=== PATIENT | female | born 1960 | race Asian ===

== ENCOUNTER 2017-09-05 09:44 | Outpatient (CLI) | payer OTHER, BC ==
[~2017-09-05 09:44] MED LIST: LEVOTHYROXINE PO; gadopentetate dimeglumine 7.5 MMOL/15 ML syringe ONE
[2017-09-05 11:17] LABS: BASOPHILS % (AUTO) 0.7 % (0-1); EOSINOPHILS # (AUTO) 0.2 X10'3 (0-0.9); EOSINOPHILS % (AUTO) 4.1 % (0-6); HEMATOCRIT 42.1 % (35.0-45.0); HEMOGLOBIN 14.5 g/dl (12.0-16.0); LYMPHOCYTES # (AUTO) 2.3 X10'3 (1.1-4.8); LYMPHOCYTES % (AUTO) 45.3 % (21-51); MEAN CORPUSCULAR HEMOGLOBIN 32.4 PG (27.0-31.0); MEAN CORPUSCULAR HGB CONC 34.3 % (33.0-36.5); MEAN CORPUSCULAR VOLUME 94.4 FL (78-98); MEAN PLATELET VOLUME 7.7 FL (7.4-10.4); MONOCYTES # (AUTO) 0.4 X10'3 (0-0.9); MONOCYTES % (AUTO) 7.8 % (2-12); NEUTROPHILS # (AUTO) 2.1 X10'3 (1.8-7.7); NEUTROPHILS % (AUTO) 42.1 % (42-75); PLATELET COUNT 242 X10'3 (140-440); RED BLOOD COUNT 4.46 X10'6 (4.20-5.60); RED CELL DISTRIBUTION WIDTH 13.5 % (11.5-14.5); WHITE BLOOD COUNT 5.1 X10'3 (4.5-11.0)
[2017-09-05 11:20] LABS: CLARITY,URINE CLEAR (Clear); COLOR,URINE YELLOW (Yellow); GLUCOSE, URINE NEGATIVE (Neg); KETONES,URINE NEGATIVE (Neg); LEUKOCYTE ESTERASE ,URINE NEGATIVE (Neg); NITRITES, URINE NEGATIVE (Neg); OCCULT BLOOD,URINE NEGATIVE (Neg); PROTEIN,URINE NEGATIVE (Neg); UROBILINOGEN,URINE 0.2 E.U/dL (0.2-1.0)
[2017-09-05 11:21] LABS: UA COLLECTION TYPE CLN CATCH MIDSTREAM
[2017-09-05 11:46] LABS: ALANINE AMINOTRANSFERASE 71 U/L (12-78); ALKALINE PHOSPHATASE 67 IU/L (46-116); ANION GAP 9 (8-16); ASPARTATE AMINO TRANSFERASE 20 U/L (10-37); BILIRUBIN,TOTAL 0.4 MG/DL (0.1-1.0); BLOOD UREA NITROGEN 20 MG/DL (7-18); CALCIUM 9.4 MG/DL (8.5-10.1); CHLORIDE 106 MMOL/L (99-107); CHOLESTEROL 221 MG/DL (0-200); CREATININE 0.74 MG/DL (0.40-0.90); GLUCOSE 102 MG/DL (70-104); HDL CHOLESTEROL 74 MG/DL (35-60); LDL CHOLESTEROL 138 MG/DL (50-100); POTASSIUM 4.4 MMOL/L (3.5-5.1); SODIUM 141 MMOL/L (135-145); TOTAL CARBON DIOXIDE 25.8 MMOL/L (24-32); TOTAL PROTEIN 7.9 G/DL (6.4-8.2); TRIGLYCERIDES 112 MG/DL (20-135); eGFR 81 ML/MIN
== END 2017-09-05 23:59 | disposition home or self-care (01) ==
LOC: RAD 09:44
PROVIDERS: ATTEND Family Medicine
DX: Z00.01 Encounter for general adult medical examination with abnormal findings (principal); G93.89 Other specified disorders of brain; M25.562 Pain in left knee; G24.5 Blepharospasm; R42 Dizziness and giddiness; R60.0 Localized edema; Z79.82 Long term (current) use of aspirin
CPT/HCPCS: 36415; 70553; 80053; 80061; 81003; 84439; 84443; 85025; 85651; 93971; A9579

== ENCOUNTER 2017-10-03 09:06 | Outpatient (CLI) | payer OTHER, BC ==
[~2017-10-03 09:06] MED LIST changes: -gadopentetate dimeglumine 7.5 MMOL/15 ML syringe ONE
== END 2017-10-03 23:59 | disposition home or self-care (01) ==
LOC: LAB 09:06
PROVIDERS: ATTEND Family Medicine
DX: H02.402 Unspecified ptosis of left eyelid (principal)
CPT/HCPCS: 36415

== ENCOUNTER 2017-10-24 13:17 | Outpatient (CLI) | payer OTHER, BC | END 2017-10-24 23:59 | disposition home or self-care (01) | LOC: LAB 13:17 | PROVIDERS: ATTEND Psychiatry & Neurology Neurology | DX: H02.403 Unspecified ptosis of bilateral eyelids (principal) | CPT/HCPCS: 36415; 82607 ==

== ENCOUNTER → 2017-11-02 | Emergency (ER) | payer BC, OTHER ==
[~2017-11-02] VITALS: Ht 162.6 cm; Wt 86.0 kg
[~2017-11-02] MED LIST changes: +IBUP-1985 PO
[2017-11-02 07:36] VITALS: BP 118/71
== END | disposition home or self-care (01) ==
LOC: ER 05:19
DX: S82.892A Other fracture of left lower leg, initial encounter for closed fracture (principal); Z79.899 Other long term (current) drug therapy; W01.0XXA Fall on same level from slipping, tripping and stumbling without subsequent striking against object, initial encounter; Y93.01 Activity, walking, marching and hiking; Y92.480 Sidewalk as the place of occurrence of the external cause; Y99.8 Other external cause status
CPT/HCPCS: 29515; 73610; 73630; 99284; A6449

== ENCOUNTER 2017-11-23 11:28 | Outpatient (CLI) | payer OTHER, BC ==
[~2017-11-23 11:28] MED LIST changes: +HYDR-3965 PO
[2017-11-23 11:35] VITALS: BP 111/58
[2017-11-23 11:39] VITALS: BP 111/58
== END 2017-11-23 13:35 | disposition home or self-care (01) ==
LOC: ORTHO 11:28
PROVIDERS: ATTEND Nurse Practitioner Family
DX: S82.65XD Nondisplaced fracture of lateral malleolus of left fibula, subsequent encounter for closed fracture with routine healing (principal); M77.32 Calcaneal spur, left foot; M79.89 Other specified soft tissue disorders; E03.9 Hypothyroidism, unspecified; X58.XXXD Exposure to other specified factors, subsequent encounter; Y92.481 Parking lot as the place of occurrence of the external cause
CPT/HCPCS: 73100; 73610; 99213

== ENCOUNTER 2017-11-30 12:05 | Day surgery (SDC) | payer OTHER ==
[2017-11-29 13:56] LABS: BASOPHILS % (AUTO) 0.4 % (0-1); EOSINOPHILS # (AUTO) 0.2 X10'3 (0-0.9); EOSINOPHILS % (AUTO) 2.5 % (0-6); LYMPHOCYTES # (AUTO) 2.3 X10'3 (1.1-4.8); LYMPHOCYTES % (AUTO) 37.5 % (21-51); MEAN CORPUSCULAR HEMOGLOBIN 32.3 PG (27.0-31.0); MEAN CORPUSCULAR HGB CONC 34.6 % (33.0-36.5); MEAN CORPUSCULAR VOLUME 93.2 FL (78-98); MEAN PLATELET VOLUME 7.8 FL (7.4-10.4); MONOCYTES # (AUTO) 0.3 X10'3 (0-0.9); MONOCYTES % (AUTO) 5.1 % (2-12); NEUTROPHILS # (AUTO) 3.4 X10'3 (1.8-7.7); NEUTROPHILS % (AUTO) 54.5 % (42-75); PRE OP HEMATOCRIT 38.9 % (35.0-45.0); PRE OP HEMOGLOBIN 13.5 g/dL (12.0-16.0); PRE OP PLATELET COUNT 238 X10'3 (140-440); RED BLOOD COUNT 4.17 X10'6 (4.20-5.60); RED CELL DISTRIBUTION WIDTH 12.5 % (11.5-14.5)
[2017-11-29 14:16] LABS: ALBUMIN 3.7 G/DL (3.4-5.0); ALBUMIN/GLOBULIN RATIO 0.9 (1.1-1.5); ALKALINE PHOSPHATASE 79 IU/L (46-116); BLOOD UREA NITROGEN 19 MG/DL (7-18); BUN/CREATININE RATIO 22.6 (6.6-38.0); CALCIUM 9.4 MG/DL (8.5-10.1); CHLORIDE 104 MMOL/L (99-107); CREATININE 0.84 MG/DL (0.40-0.90); PRE OP ALT 36 U/L (30-65); PRE OP ANION GAP 10 (8-16); PRE OP AST 11 U/L (10-37); PRE OP BILIRUB, TOTAL 0.3 MG/DL (0.0-1.0); PRE OP GLUCOSE 93 MG/DL (70-104); PRE OP POTASSIUM 3.9 MMOL/L (3.4-5.1); PRE OP SODIUM 140 MMOL/L (135-145); TOTAL CARBON DIOXIDE 26.1 MMOL/L (24-32); TOTAL PROTEIN 7.6 G/DL (6.4-8.2); eGFR 70 ML/MIN
[~2017-11-30] VITALS: Ht 163.8 cm; Wt 93.1 kg
[2017-11-30] VITALS (16 sets, daily range): BP systolic 100–128; BP diastolic 44–96
[~2017-11-30 12:05] MED LIST changes: +ACET-2119 PO; +ASPI-1265 PO; +CALC-1051 PO; +CHOL10002 PO; +DUTA0.5C14 PO; +IBUP-1984 PO; -IBUP-1985 PO; +LEVO50TA PO; -LEVOTHYROXINE PO; +MULT-933 PO; +TRAM50TA2 PO; +ceFAZolin inj. 2,000 MG in dextrose 5%-water 100 ML IV ONE; +famotidine 20mg tablet PO ONE; +ringers solution, lacted 1,000 ML IV SCH
[2017-11-30] MEDS ORDERED: cloNIDine hcl/PF 100mcg/ml inj ONE (13:38)
[2017-11-30] MEDS ORDERED: midazolam 2 mg/2 ml injection ONE (14:18)
[2017-11-30] MEDS ORDERED: desflurane 240ml liquid inh. IH ONE (14:18)
[2017-11-30] MEDS ORDERED: fentaNYL/PF 50MCG/1 ML 2ML syringe ONE (14:18)
[2017-11-30] MEDS ORDERED: ketorolac trometh. 30mg/ml inj. ONE (14:54)
[2017-11-30] MEDS ORDERED: propofol inj 20 ML IV ONE (14:54)
[2017-11-30] MEDS ORDERED: BUPIVAcaine/PF 2.5 mg/ml (0.25%) 30ml vial ONE (14:54)
[2017-11-30] MEDS ORDERED: ondansetron/PF 4mg/2ml inj ONE (14:54)
[2017-11-30] MEDS ORDERED: LIDOcaine 2% (20mg/ml) 5ml vial ONE (14:55)
[2017-11-30] MEDS ORDERED: dexamethasone sod phosphate 4mg/ml inj. ONE (14:55)
[2017-11-30] MEDS ORDERED: ringers solution, lacted 1,000 ML IV SCH (15:08)
[2017-11-30] MEDS ORDERED: morphine 4 MG/ML inj SYRINge IV PRN ×2 (15:10)
[2017-11-30] MEDS ORDERED: proCHLORperazine 10 MG/2 ml inj IV PRN (15:10)
[2017-11-30] MEDS ORDERED: meperidine/PF 50mg/ml syringe IV PRN ×2 (15:10)
[2017-11-30] MEDS ORDERED: acetaminophen 1,000mg/100ml IV 100 ML IV PRN (15:10)
[2017-11-30] MEDS ORDERED: ondansetron/PF 4mg/2ml inj IV PRN (15:10)
[2017-11-30] MEDS: meperidine/PF 50mg/ml syringe IV PRN ×4 (15:45→16:30)
[2017-11-30] MEDS ORDERED: HYDROcodone/acetaminophen 10/325mg tab PO ONE (17:10)
== END 2017-11-30 18:21 | disposition home or self-care (01) ==
LOC: PAS 12:05
PROVIDERS: ATTEND Orthopaedic Surgery Hand Surgery
DX: S52.552A Other extraarticular fracture of lower end of left radius, initial encounter for closed fracture (principal); Z72.89 Other problems related to lifestyle; E03.9 Hypothyroidism, unspecified; G89.18 Other acute postprocedural pain; Z79.1 Long term (current) use of non-steroidal anti-inflammatories (NSAID); Z79.82 Long term (current) use of aspirin; Z79.899 Other long term (current) drug therapy; Z98.890 Other specified postprocedural states; W19.XXXA Unspecified fall, initial encounter; Y93.89 Activity, other specified; Y92.89 Other specified places as the place of occurrence of the external cause; Y99.8 Other external cause status
CPT/HCPCS: 25607; 36415; 64415; 80053; 85025; A6222; A6449; J0131; J0690; J0735; J1100; J1885; J2001; J2175; J2250; J2405; J2704; J3010; J3490; J7060; J7120; A7000

== ENCOUNTER 2018-03-06 16:28 | Outpatient (CLI) | payer OTHER, BC ==
[~2018-03-06 16:28] MED LIST changes: -HYDR-3965 PO; -ceFAZolin inj. 2,000 MG in dextrose 5%-water 100 ML IV ONE; -famotidine 20mg tablet PO ONE; -ringers solution, lacted 1,000 ML IV SCH
[2018-03-06 16:47] LABS: ALANINE AMINOTRANSFERASE 57 U/L (12-78); ALBUMIN/GLOBULIN RATIO 1.1 (1.1-1.5); ALKALINE PHOSPHATASE 73 IU/L (46-116); ANION GAP 7 (8-16); ASPARTATE AMINO TRANSFERASE 16 U/L (10-37); BILIRUBIN,TOTAL 0.2 MG/DL (0.1-1.0); BLOOD UREA NITROGEN 20 MG/DL (7-18); BUN/CREATININE RATIO 24.7 (6.6-38.0); CALCIUM 9.1 MG/DL (8.5-10.1); CHLORIDE 104 MMOL/L (99-107); CREATININE 0.81 MG/DL (0.40-0.90); POTASSIUM 4.5 MMOL/L (3.5-5.1); SODIUM 140 MMOL/L (135-145); TOTAL CARBON DIOXIDE 28.7 MMOL/L (24-32); TOTAL PROTEIN 7.6 G/DL (6.4-8.2); eGFR 73 ML/MIN
[2018-03-06 16:48] LABS: GLUCOSE 109 MG/DL (70-104)
[2018-03-06 16:49] LABS: BASOPHILS % (AUTO) 0 % (0-1); EOSINOPHILS # (AUTO) 0.2 X10'3 (0-0.9); EOSINOPHILS % (AUTO) 4.8 % (0-6); HEMATOCRIT 39.2 % (35.0-45.0); HEMOGLOBIN 13.9 g/dl (12.0-16.0); LYMPHOCYTES % (AUTO) 43.8 % (21-51); MEAN CORPUSCULAR HEMOGLOBIN 33.5 PG (27.0-31.0); MEAN CORPUSCULAR HGB CONC 35.5 % (33.0-36.5); MEAN CORPUSCULAR VOLUME 94.4 FL (78-98); MEAN PLATELET VOLUME 7.9 FL (7.4-10.4); MONOCYTES # (AUTO) 0.3 X10'3 (0-0.9); MONOCYTES % (AUTO) 6.6 % (2-12); NEUTROPHILS % (AUTO) 44.8 % (42-75); PLATELET COUNT 229 X10'3 (140-440); RED BLOOD COUNT 4.16 X10'6 (4.20-5.60); RED CELL DISTRIBUTION WIDTH 13.2 % (11.5-14.5); WHITE BLOOD COUNT 4.5 X10'3 (4.5-11.0)
== END 2018-03-06 23:59 | disposition home or self-care (01) ==
LOC: LAB 16:28
PROVIDERS: ATTEND Family Medicine
DX: Z00.01 Encounter for general adult medical examination with abnormal findings (principal)
CPT/HCPCS: 36415; 80053; 82306; 82652; 84439; 84443; 85025

== ENCOUNTER 2018-03-15 13:48 | Outpatient (CLI) | payer OTHER, BC ==
[2018-03-17 15:08] LABS: THYROID PEROXIDASE AB 10 IU/mL (0-34)
== END 2018-03-15 23:59 | disposition home or self-care (01) ==
LOC: LAB 13:48
PROVIDERS: ATTEND Psychiatry & Neurology Neurology
DX: H02.402 Unspecified ptosis of left eyelid (principal); H53.8 Other visual disturbances
CPT/HCPCS: 36415; 84432; 86376; 86800

== ENCOUNTER 2018-05-22 13:07 | Outpatient (CLI) | payer OTHER, BC ==
[~2018-05-22 13:07] MED LIST changes: -DUTA0.5C14 PO; +DUTA0.5C16 PO
== END 2018-05-22 23:59 | disposition home or self-care (01) ==
LOC: LAB 13:07
PROVIDERS: ATTEND Family Medicine
DX: E03.9 Hypothyroidism, unspecified (principal); E05.80 Other thyrotoxicosis without thyrotoxic crisis or storm; Z79.82 Long term (current) use of aspirin
CPT/HCPCS: 36415; 84439; 84443

== ENCOUNTER 2018-06-06 10:47 | Outpatient (CLI) | payer OTHER, BC | END 2018-06-06 23:59 | disposition home or self-care (01) | LOC: LAB 10:47 | PROVIDERS: ATTEND Internal Medicine Rheumatology | DX: E03.8 Other specified hypothyroidism (principal) | CPT/HCPCS: 36415 ==

== ENCOUNTER 2018-06-20 12:03 | Emergency (ER) | payer OTHER, BC ==
[~2018-06-20] VITALS: Ht 162.6 cm; Wt 100.0 kg
[2018-06-20 15:10] VITALS: BP 136/99
== END 2018-06-20 15:15 | disposition home or self-care (01) ==
LOC: ER 12:03
DX: R03.0 Elevated blood-pressure reading, without diagnosis of hypertension (principal); Z79.82 Long term (current) use of aspirin; Z79.899 Other long term (current) drug therapy
CPT/HCPCS: 93005; 99283

== ENCOUNTER 2018-10-29 09:16 | Outpatient (CLI) | payer OTHER, BC ==
[2018-10-30 13:20] LABS: FSH, SERUM 43.6 mIU/mL (.); LUTEINIZING HORMONE 23.9 mIU/mL (.); PROLACTIN 12.2 ng/mL (4.8-23.3)
== END 2018-10-29 23:59 | disposition home or self-care (01) ==
LOC: LAB 09:16
PROVIDERS: ATTEND Internal Medicine Endocrinology, Diabetes & Metabolism
DX: E03.9 Hypothyroidism, unspecified (principal); M62.81 Muscle weakness (generalized); R53.83 Other fatigue; Z79.899 Other long term (current) drug therapy; Z72.89 Other problems related to lifestyle
CPT/HCPCS: 36415; 82024; 83001; 83002; 84146; 84439; 84443

== ENCOUNTER 2018-11-06 16:27 | Outpatient (CLI) | payer BC ==
[2018-11-06 17:19] LABS: BASOPHILS % (AUTO) 0.4 % (0-1); EOSINOPHILS # (AUTO) 0.1 X10'3 (0-0.9); EOSINOPHILS % (AUTO) 2.2 % (0-6); HEMATOCRIT 45.6 % (35.0-45.0); HEMOGLOBIN 15.5 g/dl (12.0-16.0); LYMPHOCYTES # (AUTO) 2.6 X10'3 (1.1-4.8); LYMPHOCYTES % (AUTO) 39.5 % (21-51); MEAN CORPUSCULAR HEMOGLOBIN 32.4 PG (27.0-31.0); MEAN CORPUSCULAR HGB CONC 33.9 g/dL (33.0-36.5); MEAN CORPUSCULAR VOLUME 95.4 FL (78-98); MONOCYTES # (AUTO) 0.5 X10'3 (0-0.9); NEUTROPHILS # (AUTO) 3.3 X10'3 (1.8-7.7); NEUTROPHILS % (AUTO) 50.9 % (42-75); PLATELET COUNT 292 X10'3 (140-440); RED BLOOD COUNT 4.78 X10'6 (4.20-5.60); RED CELL DISTRIBUTION WIDTH 12.9 % (11.5-14.5); WHITE BLOOD COUNT 6.5 X10'3 (4.5-11.0)
[2018-11-06 17:36] LABS: ALBUMIN 4.3 G/DL (3.4-5.0); ANION GAP 12 (8-16); ASPARTATE AMINO TRANSFERASE 44 U/L (10-37); BILIRUBIN,TOTAL 0.3 MG/DL (0.1-1.0); BLOOD UREA NITROGEN 18 MG/DL (7-18); BUN/CREATININE RATIO 21.7 (6.6-38.0); CALCIUM 9.9 MG/DL (8.5-10.1); CHLORIDE 103 MMOL/L (99-107); CREATININE 0.83 MG/DL (0.40-0.90); GLUCOSE 98 MG/DL (70-104); POTASSIUM 4.2 MMOL/L (3.5-5.1); SODIUM 141 MMOL/L (135-145); TOTAL CARBON DIOXIDE 25.9 MMOL/L (24-32); TOTAL PROTEIN 8.6 G/DL (6.4-8.2); eGFR 71 ML/MIN
[2018-11-06 17:37] LABS: ALANINE AMINOTRANSFERASE 85 U/L (12-78); ALKALINE PHOSPHATASE 56 IU/L (46-116)
[2018-11-06 17:44] LABS: HIV ANTIBODY 1&2 RAPID NON-REACTIVE (Neg)
[2018-11-08 13:23] LABS: EBV AB VCA, IGM <36.0 U/mL (0.0-35.9)
== END 2018-11-06 23:59 | disposition home or self-care (01) ==
LOC: LAB 16:27
PROVIDERS: ATTEND Family Medicine
DX: I05.8 Other rheumatic mitral valve diseases (principal); R91.8 Other nonspecific abnormal finding of lung field; R53.83 Other fatigue
CPT/HCPCS: 36415; 71046; 80053; 83880; 85025; 85651; 86663; 86664; 86665; 86703; 93306

== ENCOUNTER 2018-11-20 15:12 | Outpatient (CLI) | payer BC | END 2018-11-20 23:59 | disposition home or self-care (01) | LOC: RAD 15:12 | PROVIDERS: ATTEND Family Medicine | DX: J18.9 Pneumonia, unspecified organism (principal); J98.4 Other disorders of lung; Z79.82 Long term (current) use of aspirin; Z72.89 Other problems related to lifestyle | CPT/HCPCS: 71046 ==

== ENCOUNTER 2019-01-23 09:53 | Outpatient (CLI) | payer BC ==
[2019-01-23] MEDS ORDERED: iohexol 300mg/ml 100ml inj. ONE (10:27)
== END 2019-01-23 23:59 | disposition home or self-care (01) ==
LOC: 64 CT 09:53
PROVIDERS: ATTEND Family Medicine
DX: J98.11 Atelectasis (principal); K76.0 Fatty (change of) liver, not elsewhere classified; R91.8 Other nonspecific abnormal finding of lung field
CPT/HCPCS: 71260; Q9967

== ENCOUNTER 2019-01-24 16:50 | Emergency (ER) | payer BC ==
[~2019-01-24] VITALS: Ht 162.6 cm; Wt 100.0 kg
--- NOTE | 2019-01-24 19:00 | NUR ---
PRIMARY RN TOLD THAT DR CERVANTES WOULD LIKE A LINE PLACED AND HE WILL PLACE ORDERS. PATIENT IS AN EMPLOYEE HERE
[2019-01-24] MEDS ORDERED: diphenhydrAMINE 25mg capsule PO ONE (20:00)
[2019-01-24 20:19] LABS: BASOPHILS % (AUTO) 0.3 % (0-1); EOSINOPHILS # (AUTO) 0.3 X10'3 (0-0.9); EOSINOPHILS % (AUTO) 6.4 % (0-6); HEMATOCRIT 41.4 % (35.0-45.0); HEMOGLOBIN 14.4 g/dl (12.0-16.0); LYMPHOCYTES # (AUTO) 1.8 X10'3 (1.1-4.8); LYMPHOCYTES % (AUTO) 38.4 % (21-51); MEAN CORPUSCULAR HEMOGLOBIN 33.4 PG (27.0-31.0); MEAN CORPUSCULAR HGB CONC 34.7 g/dL (33.0-36.5); MEAN PLATELET VOLUME 7.9 FL (7.4-10.4); MONOCYTES # (AUTO) 0.5 X10'3 (0-0.9); NEUTROPHILS % (AUTO) 43.9 % (42-75); PLATELET COUNT 228 X10'3 (140-440); RED BLOOD COUNT 4.31 X10'6 (4.20-5.60); RED CELL DISTRIBUTION WIDTH 13.1 % (11.5-14.5); WHITE BLOOD COUNT 4.6 X10'3 (4.5-11.0)
[2019-01-24 20:24] LABS: ALANINE AMINOTRANSFERASE 70 U/L (12-78); ALBUMIN 3.6 G/DL (3.4-5.0); ALKALINE PHOSPHATASE 46 IU/L (46-116); ANION GAP 6 (8-16); ASPARTATE AMINO TRANSFERASE 22 U/L (10-37); BILIRUBIN,TOTAL 0.4 MG/DL (0.1-1.0); BLOOD UREA NITROGEN 15 MG/DL (7-18); BUN/CREATININE RATIO 19.2 (6.6-38.0); CHLORIDE 107 MMOL/L (99-107); CREATININE 0.78 MG/DL (0.40-0.90); GLUCOSE 98 MG/DL (70-104); POTASSIUM 4.7 MMOL/L (3.5-5.1); SODIUM 143 MMOL/L (135-145); TOTAL CARBON DIOXIDE 30.3 MMOL/L (24-32); TOTAL PROTEIN 7.2 G/DL (6.4-8.2); eGFR 76 ML/MIN
[2019-01-24 21:53] LABS: CLARITY,URINE CLEAR (Clear); COLOR,URINE YELLOW (Yellow); GLUCOSE, URINE NEGATIVE (Neg); KETONES,URINE NEGATIVE (Neg); LEUKOCYTE ESTERASE ,URINE NEGATIVE (Neg); NITRITES, URINE NEGATIVE (Neg); OCCULT BLOOD,URINE NEGATIVE (Neg); PROTEIN,URINE NEGATIVE (Neg); UROBILINOGEN,URINE 0.2 E.U/dL (0.2-1.0)
[2019-01-24 21:55] LABS: UA COLLECTION TYPE CLN CATCH MIDSTREAM
[2019-01-24 22:06] VITALS: BP 170/115
== END 2019-01-24 22:03 | disposition home or self-care (01) ==
LOC: ER 16:51
DX: T78.40XA Allergy, unspecified, initial encounter (principal); Z91.041 Radiographic dye allergy status; Z79.82 Long term (current) use of aspirin; Z79.899 Other long term (current) drug therapy; X58.XXXA Exposure to other specified factors, initial encounter
CPT/HCPCS: 36415; 80053; 81003; 85025; 99283; Q0163